=== PATIENT | male | born 1985 | race Caucasian/White ===

== ENCOUNTER 2017-10-18 08:16 | Emergency (ER) | payer OTHER ==
[2017-10-18 08:28] VITALS: RESP 18
--- NOTE | 2017-10-18 08:48 | ED ---
URI HPI - General Chief Complaint: Upper Respiratory Infection Stated Complaint: Fever/Congestion Time Seen by Provider: 10/18/17 08:34 Source: patient, RN notes reviewed, old records reviewed Mode of arrival: ambulatory Limitations: no limitations - History of Present Illness Initial Comments: Patient is a 32-year-old male with no significant past medical history presents emergency Department with 1 week of fever, cough and sinus congestion. Patient had a fever 102 this morning. Family reports a history of sick contacts. Initially this because cough was productive. He was seen by medics present when he had a viral illness. Sent home on cough syrup. He is taking Motrin and Tylenol earlier today already. Patient denies any abdominal pain, nausea vomiting or diarrhea. - Related Data Home Medications Medication Instructions Recorded Confirmed Promethaz-Cod 6.25-10 mg/5 ml 5 ml PO Q6H PRN 10/18/17 10/18/17 [Phenergan with Codeine] Previous Rx's Medication Instructions Recorded Albuterol Inhaler [Ventolin Hfa 1 - 2 puff INHALATION RT-Q6H PRN 10/18/17 Inhaler] #1 inhaler Amoxic-Pot Clav 875-125Mg 1 tab PO Q12HR #20 tablet 10/18/17 [Augmentin 875-125] Azithromycin [Zithromax Z-pack] 250 mg PO DIRECTED #6 tab 10/18/17 methylPREDNISolone Dose Pack 4 mg PO DIRECTED #21 package 10/18/17 [Medrol Dose Pack] Allergies Allergy/AdvReac Type Severity Reaction Status Date / Time No Known Allergies Allergy Verified 10/18/17 09:17 Review of Systems ROS Statement: Those systems with pertinent positive or pertinent negative responses have been documented in the HPI. ROS Other: All systems not noted in ROS Statement are negative. Past Medical History Past Medical History: No Reported History History of Any Multi-Drug Resistant Organisms: None Reported Additional Past Surgical History / Comment(s): testicle removal at 2 weeks old Past Psychological History: No Psychological Hx Reported Smoking Status: Never smoker Past Alcohol Use History: Occasional Past Drug Use History: None Reported General Exam - General Exam Comments Initial Comments: 32-year-old male. Alert and oriented. No significant distress. General: Well appearing, well nourished, in no distress. Oriented x 3, normal mood and affect . Ambulating without difficulty. Skin: Good turgor, no rash, unusual bruising or prominent lesions Hair: Normal texture and distribution. HEENT: Head: Normocephalic, atraumatic, no visible or palpable masses, depressions, or scaring. Eyes: Visual acuity intact, conjunctiva clear, sclera non-icteric, EOM intact, PERRL. Ears: erythematous hands. EACs clear. Nose: No external lesions, mucosa non-inflamed, septum and turbinates normal Mouth: Mucous membranes moist, no mucosal lesions. Teeth/Gums: No obvious caries or periodontal disease. No gingival inflammation or significant resorption. Pharynx: Erythematous oropharynx. Neck: Supple, evidence of anterior cervical lymphadenopathy. Heart: No cardiomegaly or thrills; regular rate and rhythm, no murmur or gallop Lungs: somewhat diminished lung sounds on the left lower lung. Abdomen: Bowel sounds normal, no tenderness, organomegaly, masses, or hernia Back: Spine normal without deformity or tenderness, no CVA tenderness Extremities: No amputations or deformities, cyanosis, edema or varicosities, peripheral pulses intact Musculoskeletal: Normal gait and station. No misalignment, asymmetry, crepitation, defects, tenderness, masses, effusions, decreased range of motion, instability, atrophy or abnormal strength or tone in the head, neck, spine, ribs , pelvis or extremities. Neurologic: CN 2-12 normal. Sensation to pain, touch, and proprioception normal. DTRs normal in upper and lower extremities. No pathologic reflexes. Psychiatric: Oriented X3, intact recent and remote memory, judgment and insight , normal mood and affect. Limitations: no limitations Course Vital Signs 10/18/17 08:25 Temperature 98.7 F Pulse Rate 103 H Respiratory 18 Rate Blood Pressure 130/77 O2 Sat by Pulse 97 Oximetry Medical Decision Making - Medical Decision Making 32 ms emergency room today with fevers, and initially of productive cough. He has been significantly depressed and told he had a cold. His chest x-ray shows evidence of a lingular pneumonia. Patient will be started on Rocephin and azithromycin. Given a gram of Rocephin, 125 mg of Solu-Medrol as well as 500 mg of azithromycin in the emergency department. We'll discharge the Patient with azithromycin and Augmentin here he recommended by Dr. Farah. We'll put the Patient on a steroid Dosepak as well as giving an albuterol inhaler. Discussed case to home from work. All questions answered return parameters were discussed. - Radiology Data Radiology results: report reviewed Plans was compatible with unifocal lingular pneumonia. Disposition Clinical Impression: Pneumonia Disposition: HOME SELF-CARE Condition: Good Instructions: Pneumonia (ED) Additional Instructions: Patient advised to take the medications as prescribed. Patient should follow- up with a primary care physician. Please return if there is any worsening signs or symptoms of him the next 1-2 days. Alternate Motrin and Tylenol every 4 hours for pain. Use the inhaler as needed for shortness breath and coughing. Continue your cough syrup as well. Prescriptions: Albuterol Inhaler [Ventolin Hfa Inhaler] 1 - 2 puff INHALATION RT-Q6H PRN #1 inhaler PRN Reason: Shortness Of Breath Amoxic-Pot Clav 875-125Mg [Augmentin 875-125] 1 tab PO Q12HR #20 tablet Azithromycin [Zithromax Z-pack] 250 mg PO DIRECTED #6 tab methylPREDNISolone Dose Pack [Medrol Dose Pack] 4 mg PO DIRECTED #21 package Is patient prescribed a controlled substance at d/c from ED?: No When asked, does pt state using other controlled substances?: No If prescribed controlled substance>3 days was MAPS reviewed?: No If opioid is for acute pain is fill amount 7 days or less?: No If Rx opioid, was Start Talking consent form obtained?: No Referrals: None,Stated [Primary Care Provider] - 1-2 days Yuko Banks MD [STAFF PHYSICIAN] - 1-2 days Time of Disposition: 09:31
--- NOTE | 2017-10-18 09:04 | XR ---
EXAMINATION TYPE: XR chest 2V DATE OF EXAM: 10/18/2017 COMPARISON: NONE HISTORY: Chest pain. TECHNIQUE: Frontal and lateral views of the chest are obtained. FINDINGS: Lingular opacity is unifocal with the remainder the lungs clear. No pneumothorax or pleura l effusion. Cardiomediastinal silhouette is within normal limits and osseous structures are intact. IMPRESSION: Findings most compatible with unifocal lingular pneumonia.
[2017-10-18] MEDS ORDERED: cefTRIAXone 1,000 MG VIAL (IM USE) IM STA (09:29)
[2017-10-18] MEDS ORDERED: AZITHROMYCIN 500 MG TAB PO STA (09:29)
[2017-10-18] MEDS ORDERED: methylPREDNISolone SOD SUCCI 125 MG/2 ML VIAL IM ONE (09:29)
[2017-10-18 10:34] VITALS: BP 129/70; PULSE 79; TEMP 98.4
== END 2017-10-18 10:34 | disposition home or self-care (01) ==
LOC: EC 08:16
DX: J18.9 Pneumonia, unspecified organism (principal)
CPT/HCPCS: 99284; 96372 ×2; 71046; J2930; J0696

== ENCOUNTER 2024-02-07 22:05 | Emergency (ER) | payer OTHER ==
--- NOTE | 2024-02-07 22:44 | ED ---
Abdominal Pain HPI - General Source: patient, RN notes reviewed Mode of arrival: ambulatory Limitations: no limitations - History of Present Illness MD Complaint: abdominal pain, flank pain Onset/Timin -: days(s) <Alessandro Hilario - Last Filed: 02/07/24 22:42> <Prakash Watts - Last Filed: 02/08/24 00:59> - General Chief Complaint: Abdominal Pain Stated Complaint: Back Pain Time Seen by Provider: 02/07/24 22:16 - History of Present Illness Initial Comments: Quick note: This is a 38-year-old male presenting with right lower abdomen/flank/back pain (10 out of 10) x 1 day. Patient states pain is constant and is worsened over the last several hours. Patient states he has his appendix and denies urinary symptoms. Denies history of kidney stones denies [id number] medication use. Denies fever, chills, body aches, chest pain, dyspnea, nausea/vomiting/diarrhea, constipation, dizziness, hematuria. (Alessandro Hilario) - Related Data Home Medications Medication Instructions Recorded Confirmed Promethaz-Cod 6.25-10 mg/5 ml 5 ml PO Q6H PRN 10/18/17 10/18/17 [Phenergan with Codeine] Previous Rx's Medication Instructions Recorded Albuterol Inhaler [Ventolin Hfa 1 - 2 puff INHALATION RT-Q6H PRN 10/18/17 Inhaler] #1 inhaler Amoxic-Pot Clav 875-125Mg 1 tab PO Q12HR #20 tablet 10/18/17 [Augmentin 875-125] Azithromycin [Zithromax Z-pack (6 250 mg PO DIRECTED #6 tab 10/18/17 tabs)] methylPREDNISolone Dose Pack 4 mg PO DIRECTED #21 package 10/18/17 [Medrol Dose Pack] HYDROcodone/APAP 5-325MG [[place] 1 tab PO Q4HR PRN 3 Days #18 tab 02/08/24 5-325] Ibuprofen [Motrin] 600 mg PO Q8HR PRN #20 tab 02/08/24 Ondansetron Odt [Zofran ODT] 4 mg PO Q8HR PRN #10 tab 02/08/24 Tamsulosin [Flomax] 0.4 mg PO DAILY #14 cap 02/08/24 Allergies Allergy/AdvReac Type Severity Reaction Status Date / Time No Known Allergies Allergy Verified 02/07/24 22:14 Review of Systems ROS Other: All systems not noted in ROS Statement are negative. <Alessandro Hilario - Last Filed: 02/07/24 22:42> ROS Other: All systems not noted in ROS Statement are negative. <Prakash Watts - Last Filed: 02/08/24 00:59> ROS Statement: Those systems with pertinent positive or pertinent negative responses have been documented in the HPI. Past Medical History Past Medical History: No Reported History History of Any Multi-Drug Resistant Organisms: None Reported Additional Past Surgical History / Comment(s): testicle removal at 2 weeks old Past Psychological History: No Psychological Hx Reported Smoking Status: Never smoker Past Alcohol Use History: Occasional Past Drug Use History: None Reported <Alessandro Hilario - Last Filed: 02/07/24 22:42> General Exam Limitations: no limitations <Alessandro Hilario - Last Filed: 02/07/24 22:42> - General Exam Comments Initial Comments: Visual Physical Exam Vital signs reviewed General: Well-appearing, nontoxic, no acute distress. Head: Normocephalic, atraumatic Eyes: PERRLA, EOMI ENT: Airway patent Chest: Nonlabored breathing Skin: No visual rash, normal skin tone Neuro: Alert and oriented 3 Musculoskeletal: No gross abnormalities (Alessandro Hilario) Course Vital Signs 02/07/24 02/07/24 22:11 23:47 Temperature 97.4 F L Pulse Rate 59 L 64 Respiratory 16 18 Rate Blood Pressure 157/95 110/65 O2 Sat by Pulse 100 97 Oximetry Medical Decision Making <Alessandro Hilario - Last Filed: 02/07/24 22:42> - Lab Data Result diagrams: 02/07/24 23:44 02/07/24 23:44 <Prakash Watts - Last Filed: 02/08/24 00:59> - Medical Decision Making I completed the quick note portion of this chart signed JAVIER Chen (Alessandro Hilario) The patient had CT scan of the abdomen and pelvis that I interpreted as showing right ureteral stone, proximal. No free air or obstruction. No acute surgical condition. (Prakash Watts) - Lab Data Lab Results 02/07/24 02/07/24 Range/Units 23:44 23:44 WBC 10.4 (3.8-10.6) k/uL RBC 5.12 (4.30-5.90) m/uL Hgb 15.0 (13.0-17.5) gm/dL Hct 44.5 (39.0-53.0) % MCV 86.9 (80.0-100.0) fL MCH 29.2 (25.0-35.0) pg MCHC 33.6 (31.0-37.0) g/dL RDW 12.3 (11.5-15.5) % Plt Count 207 (150-450) k/uL MPV 7.5 Neutrophils % 84 % Lymphocytes % 9 % Monocytes % 4 % Eosinophils % 2 % Basophils % 1 % Neutrophils # 8.7 H (1.3-7.7) k/uL Lymphocytes # 0.9 L (1.0-4.8) k/uL Monocytes # 0.5 (0-1.0) k/uL Eosinophils # 0.2 (0-0.7) k/uL Basophils # 0.1 (0-0.2) k/uL Sodium 141 (137-145) mmol/L Potassium 4.2 (3.5-5.1) mmol/L Chloride 105 (98-107) mmol/L Carbon Dioxide 31 H (22-30) mmol/L Anion Gap 5 mmol/L BUN 20 (9-20) mg/dL Creatinine 1.03 (0.66-1.25) mg/dL Est GFR (CKD-EPI)AfAm >90 (>60 ml/min/1.73 sqM) Est GFR (CKD-EPI)NonAf >90 (>60 ml/min/1.73 sqM) Glucose 92 (74-99) mg/dL Calcium 9.6 (8.4-10.2) mg/dL Total Bilirubin 0.4 (0.2-1.3) mg/dL AST 25 (17-59) U/L ALT 28 (4-49) U/L Alkaline Phosphatase 73 (38-126) U/L Total Protein 7.1 (6.3-8.2) g/dL Albumin 4.6 (3.5-5.0) g/dL Disposition <Alessandro Hilario - Last Filed: 02/07/24 22:42> Is patient prescribed a controlled substance at d/c from ED?: Yes When asked, does pt state using other controlled substances?: No If prescribed controlled substance>3 days was MAPS reviewed?: Prescribed <3 Days If opioid is for acute pain is fill amount 7 days or less?: Yes If Rx opioid, was Start Talking consent form obtained?: Yes <KamPrakash noel - Last Filed: 02/08/24 00:59> Clinical Impression: Calculus of kidney Condition: Good Instructions (If sedation given, give patient instructions): Kidney Stones (ED) Prescriptions: Tamsulosin [Flomax] 0.4 mg PO DAILY #14 cap Ibuprofen [Motrin] 600 mg PO Q8HR PRN #20 tab PRN Reason: Pain HYDROcodone/APAP 5-325MG [[place] 5-325] 1 tab PO Q4HR PRN 3 Days #18 tab PRN Reason: Pain Ondansetron Odt [Zofran ODT] 4 mg PO Q8HR PRN #10 tab PRN Reason: Nausea Referrals: Trevin Hayden MD [Primary Care Provider] - 1-2 days J Carlos Weldon MD [STAFF PHYSICIAN] - 1-2 days
[2024-02-07] MEDS: TAMSULOSIN 0.4 MG CAP.ER.24H PO STA (23:48)
[2024-02-07] MEDS: KETOROLAC 15 MG/ML 1 ML VIAL IVP STA (23:48)
[2024-02-07 23:53] LABS: Basophils # (A) 0.1 k/uL (0-0.2); Basophils % (A) 1 %; Eosinophils # (A) 0.2 k/uL (0-0.7); Eosinophils % (A) 2 %; HCT 44.5 % (39.0-53.0); Lymphocytes # (A) 0.9 k/uL (1.0-4.8); Lymphocytes % (A) 9 %; MCH 29.2 pg (25.0-35.0); MCHC 33.6 g/dL (31.0-37.0); MCV 86.9 fL (80.0-100.0); Mean Platelet Volume 7.5; Monocytes # (A) 0.5 k/uL (0-1.0); Monocytes % (A) 4 %; Neutrophils # (A) 8.7 k/uL (1.3-7.7); Neutrophils % (A) 84 %; Platelet Count 207 k/uL (150-450); RBC 5.12 m/uL (4.30-5.90); RDW 12.3 % (11.5-15.5); WBC 10.4 k/uL (3.8-10.6)
[2024-02-08] LABS: ALT 28 U/L (4-49); AST 25 U/L (17-59); African American GFR (CKD) >90 (>60 ml/min/1.73 sqM); Albumin 4.6 g/dL (3.5-5.0); Alkaline Phosphatase 73 U/L (38-126); Anion Gap 5 mmol/L; Blood Urea Nitrogen 20 mg/dL (9-20); Calcium 9.6 mg/dL (8.4-10.2); Carbon Dioxide 31 mmol/L (22-30); Chloride 105 mmol/L (98-107); Glucose 92 mg/dL (74-99); Non-African American GFR(CKD) >90 (>60 ml/min/1.73 sqM); Potassium 4.2 mmol/L (3.5-5.1); Sodium 141 mmol/L (137-145); Total Bilirubin 0.4 mg/dL (0.2-1.3); Total Protein 7.1 g/dL (6.3-8.2)
--- NOTE | 2024-02-08 00:04 | CT ---
EXAM: CT Abdomen and Pelvis Without Intravenous Contrast CLINICAL HISTORY: ITS.REASON CT Reason: Right abdomen and flank pain TECHNIQUE: Axial computed tomography images of the abdomen and pelvis without intravenous contrast. CTDI is 11.9 mGy and DLP is 736.7 mGy-cm. This CT exam was performed using one or more of the following dose reduction techniques: automated exposure control, adjustment of the mA and/or kV according to patient size, and/or use of iterative reconstruction technique. COMPARISON: None. FINDINGS: Lung bases: No mass. No consolidation. No pleural effusion. ABDOMEN: Lack of IV contrast limits evaluation of soft tissues/vascular structures. Liver: Unremarkable. Gallbladder and bile ducts: A contracted gallbladder. No calcified stones. No ductal dilation. Pancreas: Unremarkable. No ductal dilation. Spleen: Unremarkable. No splenomegaly. Adrenals: Unremarkable. No mass. Kidneys and ureters: A tiny/punctate nonobstructive left renal calculus. A 6 mm calculus seen in the proximal right ureter with mild right hydronephrosis (series 201 image 62, series 202 image 54).. No obstructing stones. No hydronephrosis. Stomach and bowel: A significantly distended stomach filled with ingested fluid/food debris is seen. Moderate volume stool/gas is seen in the ascending colon. No obstruction. No mucosal thickening. PELVIS: Appendix: No acute findings in the region of the appendix Bladder: Unremarkable. No stones. Reproductive: Centrally coarse prostate calcifications. ABDOMEN and PELVIS: Intraperitoneal space: Unremarkable. No free air. No significant fluid collection. Bones/joints: No acute fracture. No dislocation. Soft tissues: Unremarkable. Vasculature: Unremarkable. No abdominal aortic aneurysm. Lymph nodes: Unremarkable. No enlarged lymph nodes.. IMPRESSION: A 6 mm obstructive calculus seen in proximal right ureter with mild right hydronephrosis. A tiny/punctate nonobstructive calculus in the mid left kidney. A significantly distended stomach. .
[2024-02-08 01:13] VITALS: BP 130/82; PULSE 68; RESP 19
[2024-02-08 01:15] VITALS: TEMP 98.8
== END 2024-02-08 01:12 | disposition home or self-care (01) ==
LOC: EC 22:05
DX: N13.2 Hydronephrosis with renal and ureteral calculous obstruction (principal)
CPT/HCPCS: 36415; 74176; 80053; 85025; 96374; 99284